=== PATIENT | male | born 2005 | race African-American/Black ===

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

== ENCOUNTER 2023-08-07 23:15 | Emergency (ER) | payer OTHER ==
[2023-08-08] MEDS ORDERED: diphenhydrAMINE 25 MG CAP ONE (00:52)
[2023-08-08] MEDS ORDERED: Ibuprofen 200 MG TAB ONE ×2 (00:52→00:53)
== END 2023-08-08 01:33 | disposition home or self-care (01) ==
LOC: ERS 23:15
DX: H10.13 Acute atopic conjunctivitis, bilateral (principal)
CPT/HCPCS: 99283

== ENCOUNTER 2024-12-09 12:25 | Emergency (ER) | payer OTHER ==
[2024-12-09] MEDS ORDERED: Oxymetazoline HCl 0.05% (30 ML BOT) ONE (12:55)
== END 2024-12-09 13:06 | disposition home or self-care (01) ==
LOC: ERS 12:25
DX: J30.9 Allergic rhinitis, unspecified (principal)
CPT/HCPCS: 99283